=== PATIENT | female | born 1960 | race Caucasian/White ===

== ENCOUNTER 2025-01-05 09:23 | Outpatient (REF) | payer MEDICARE, MEDICAID, SELFPAY ==
--- OUTSIDE RECORDS SUMMARY | 2025-01-05 10:15 | XMS_ITS | Encounter Summary ---
Author Organization [facility] Address [address] [place] [address] Phone Care Team Providers Care Clerical Adjuster Name Role Phone Lou Rene MD Primary Care Provider [phone] [phone] Encounter Details Date Type Department Care Team (Late st Contact Info) Description 02/13/2023 Documentation Only [facility] [address] [place] [address] Saabs Romero MD [address] [place] [address] [place] [address] Social History Tobacco Use Types Packs/Day Years Used Date Smoking Tobacco: Former Smokeless Tobacco: Never Comments:Smoking History Inf o:Unknown Alcohol Use Standard Drinks/Week Comments Yes 0 (1 standard drink = 0.6 oz pure alcohol) Alcoholic Drinks/day: Occasional social drink Comments Unknown Sex and Gender Information Value Date Recorded Sex Assigned at Not on file Legal Sex Female 4:36 PM EST Gender Identity Not on file Sexual Orientation Not on file documented as of this encounter Plan of Treatment Upcoming Encounters Date Type Department Care Team (Late st Contact Info) Description 02/03/2025 1:45 PM EDT Office Visit [facility] [address] [place] [address] Sabas Romero MD [address] [place] [address] [place] [address] documented as of this encounter Visit Diagnoses Not on filedocumented in this encounter Care Teams Clerical Adjuster Relationship Specialty Start Date End Date Lou Rene MD [address] [place] [address] PCP - General 06/23/19 documented as of this encounter
--- OUTSIDE RECORDS SUMMARY | 2025-01-05 10:15 | XMS_ITS | Encounter Summary ---
Author Organization [facility] Address [address] [place] [address] Phone Care Team Providers Care Repairer Maintenance Building Name Role Phone Lou Rene MD Primary Care Provider [phone] [phone] Encounter Details Date Type Department Care Team (Late st Contact Info) Description 07/10/2022 Documentation Only [facility] [address] [place] [address] Sabas Romero MD [address] [place] [address] [place] [address] Social History Tobacco Use Types [...] Visit [facility] [address] [place] [address] Sabas Romero MD [address] [place] [address] [place] [address] documented as of this encounter Visit Diagnoses Not on filedocumented in this encounter Care Teams Repairer Maintenance Building Relationship Specialty Start Date End Date Lou Rene MD [address] [place] [address] PCP - General 06/23/19 documented as of this encounter
--- OUTSIDE RECORDS SUMMARY | 2025-01-05 10:15 | XMS_ITS | Clinical Summary ---
Author Organization [facility] Address [address] [place] [address] Phone Care Team Providers Care Business Continuity Analyst Name Role Phone Lou Rene MD Primary Care Provider Social History Tobacco Use Types Packs/Day Years Used Date Smoking Tobacco: Never Assessed Comments No Sex and Gender Information Value Date Recorded Sex Assigned at Not on file Legal Sex Female 2:01 AM EST Gender Identity Not on file Sexual Orientation Not on file Obstetrics History Last Filed Vital Signs Vital Sign Reading Time Taken Comments Blood Pressure - - Pulse - - Temperature - - Respiratory Rate - - Oxygen Saturation - - Inhaled Oxygen Concentration - - Weight 43.1 kg (95 lb) 07/31/2024 11:17 AM EST Height 152.4 cm (5') 07/31/2024 11:17 AM EST Body Mass Index 18.55 07/31/2024 11:17 AM EST Plan of Treatment Health Maintenance Due Date Last Done Comments Diabetes: Annual GFR (Glomerular Filtration Rate) 1962 Diabetes: Annual Foot Exam 1972 Diabetes: Annual Retina Eye Exam 1972 DTaP,Tdap,and Td Vaccines (1 - Tdap) 1981 Hepatitis A Vaccines (1 of 2 - Risk 2-dose series) 1981 Pneumococcal Vaccine: 50+ Years (1 of 2 - PCV) 1981 Pneumococcal Vaccine: Pediatrics (0 to 5 Years) and At-Risk Patients (6 to 64 Years) (1 of 2 - PCV) 1981 Cervical Cancer Screening: Pap Smear 10/27/1983 Cholesterol Screening (Lipid Panel) 07/22/2022 Colorectal Cancer Screening: Colonoscopy 07/22/2022 Depression Screening 07/22/2022 HIV Screening 07/22/2022 Hepatitis C Screening 07/22/2022 Medicare Annual Wellness Visit 07/22/2022 Social Influencers of Health Screening 07/22/2022 RSV Immunization Adult Patients (1 - Risk 60-74 years 1-dose series) 2022 Diabetes: Annual Urine Albumin-Creatinine Ratio (uACR) 07/31/2024 Diabetes: Blood Sugar Control Test (HGBA1C) 07/31/2024 COVID-19 Vaccine (8 - Pfizer risk season) 2024 04/28/2024, 05/19/2023, 06/04/2022, Additional history exists Breast Cancer Screening 07/31/2026 07/31/20, 07/04/2023, 06/07/2022, Additional history exists Zoster Vaccines Completed 10/12/2021, 05/18/2021 Influenza Vaccine Completed 04/28/2024, , 06/04/2022, Additional history exists HIB Vaccines Aged Out No longer eligi ble based on patient's age to complete this topic HPV Vaccines Aged Out No longer eligi ble based on patient's age to complete this topic Hepatitis B Vaccines Aged Out No long er eligible based on patient's age to complete this topic IPV Vaccines Aged Out No longer eligi ble based on patient's age to complete this topic MMR Vaccines Aged Out No longer eligi ble based on patient's age to complete this topic Meningococcal ACWY Vaccine Aged Out N o longer eligible based on patient's age to complete this topic Meningococcal B Vaccine Aged Out No l onger eligible based on patient's age to complete this topic RSV Immunization Patients Under 20 months Aged Out No longer eligible based on patient's age to complete this topic Varicella Vaccines Aged Out No longer eligible based on patient's age to complete this topic Procedures Procedure Name Priority Date/Time Associated Diagnosis Comments MG MAMMO DIGITAL SCREENING W RONALD BILAT Routine 07/31/2024 11:36 AM EST Encounter for screening mammogram for breast cancer from Last 3 Months or Most Recently Relevant to Health Maintenance Results * MG Mammo Digital Screening w Ronald bilat (07/31/2024 11:36 AM EST) Anatomical Region Laterality Modality Breast Bilateral Mammography 07/31/2024 12:4 2 PM EST Impressions 07/31/2024 12:48 PM EST No mammographic evidence of malignancy. ?? No suspicious interval change. A negative mammogram in the presence of a clinically suspicious palpable abnormality does not preclude the possibility of malignancy or alter the indications for biopsy. ASSESSMENT: ?? BI-RADS 1: NEGATIVE RECOMMENDATION(S): 1: Routine screening mammogram BILATERAL in 1 year. -------- FINAL REPORT -------- Dictated By: Holden Al Dictated Date: 07/31/2024 12:42 ET Assigned Physician: Holden Al Reviewed and Electronically Signed By: Holden Al Signed Date: 07/31/2024 12:48 ET Workstation ID: [id number] Transcribed By: Self Edit Transcribed Date: 07/31/2024 12:42 ET Narrative 07/31/2024 12:48 PM EST EXAM: ??SCREENING MAMMOGRAPHY, BILATERAL HISTORY: ??SCREENING. ??No additional history. COMPARISON: ??07/04/2023, 06/07/2022, 03/30/2021, 09/23/2019 TECHNIQUE: Synthesized CC and MLO projections of each breast. ??Tomosynthesis of each breast in the CC and MLO projections. ADDITIONAL IMAGING: None Computer-aided detection was employed with the iCAD ??profound AI 3-D. TISSUE DENSITY: The breasts are heterogeneously dense, which may obscure small masses. (BI-RADS category C) FINDINGS: RIGHT BREAST: No suspicious mass. No suspicious calcification. No distortion. ?? No additional suspicious right breast findings LEFT BREAST: No suspicious mass. No suspicious calcification. No distortion. ?? No additional suspicious left breast findings Procedure Note Holden Al MD - 07/31/2024 EXAM: SCREENING MAMMOGRAPHY, BILATERAL HISTORY: SCREENING. No additional history. COMPARISON: 07/04/2023, 06/07/2022, 03/30/2021, 09/23/2019 TECHNIQUE: Synthesized CC and MLO projections of each breast.Tomosynthesis of each breast in the CC and MLO projections. ADDITIONAL IMAGING: None Computer-aided detection was employed with the iCAD profound AI 3-D. TISSUE DENSITY: The breasts are heterogeneously dense, which may obscuresmall masses. (BI-RADS category C) FINDINGS: RIGHT BREAST: No suspicious mass. No suspicious calcification. No distortion. Noadditional suspicious right breast findings LEFT BREAST: No suspicious mass. No suspicious calcification. No distortion. Noadditional suspicious left breast findings IMPRESSION: No mammographic evidence of malignancy. No suspicious interval change. A negative mammogram in the presence of a clinically suspicious palpableabnormality does not preclude the possibility of malignancy or alter theindications for biopsy. ASSESSMENT: BI-RADS 1: NEGATIVE RECOMMENDATION(S): 1: Routine screening mammogram BILATERAL in 1 year. -------- FINAL REPORT -------- Dictated By: Holden lA Dictated Date: 07/31/2024 12:42 ET Assigned Physician: Holden Al Reviewed and Electronically Signed By: Holden Al Signed Date: 07/31/2024 12:48 ET Workstation ID: [id number] Transcribed By: Self Edit Transcribed Date: 07/31/2024 12:42 ET us Self Referral Sppl IMG BI PROCEDURES Final Resul t from Last 3 Months or Most Recently Relevant to Health Maintenance Insurance MEDICARE MEDICAID - [place] Care Teams Business Continuity Analyst Relationship Specialty Start Date End Date Lou Rene MD [address] [place] [address] PCP - General Internal Medicine 07/29/24
--- OUTSIDE RECORDS SUMMARY | 2025-01-05 10:15 | XMS_ITS | Encounter Summary ---
Author Organization [facility] Address [address] [place] [address] Phone Care Team Providers Care Multi Slide Machine Tender Name Role Phone Lou Rene MD Primary Care Provider [phone] [phone] Encounter Details Date Type Department Care Team (Late st Contact Info) Description 12/19/2022 Documentation Only [facility] [address] [place] [address] Sabas Romero MD [address] [place] [address] [place] [address] Social History Tobacco Use Types [...] Visit [facility] [address] [place] [address] Sabas Romero MD [address] [place] [address] [place] [address] documented as of this encounter Visit Diagnoses Not on filedocumented in this encounter Care Teams Multi Slide Machine Tender Relationship Specialty Start Date End Date Lou Rene MD [address] [place] [address] PCP - General 06/23/19 documented as of this encounter
--- OUTSIDE RECORDS SUMMARY | 2025-01-05 10:15 | XMS_ITS | Encounter Summary ---
Author Organization [facility] Address [address] [place] [address] Phone Care Team Providers Care Hatch Tender Name Role Phone Lou Rene MD Primary Care Provider [phone] Encounter Details Date Type Department Care Team (Late st Contact Info) Description 03/20/2023 Documentation Only [facility] [address] [place] [address] Sabas Romero MD [address] [place] [address] [place] [address] Social History Tobacco Use Types [...] Visit [facility] [address] [place] [address] Sabas Romero MD [address] [place] [address] [place] [address] documented as of this encounter Visit Diagnoses Not on filedocumented in this encounter Care Teams Hatch Tender Relationship Specialty Start Date End Date Lou Rene MD [address] [place] [address] PCP - General 06/23/19 documented as of this encounter
--- OUTSIDE RECORDS SUMMARY | 2025-01-05 10:15 | XMS_ITS | Encounter Summary ---
Author Organization [facility] Address [address] [place] [address] Phone Care Team Providers Care Food Service Substitute Name Role Phone Lou Rene MD Primary Care Provider [phone] Encounter Details Date Type Department Care Team (Late st Contact Info) Description 03/23/2022 Documentation Only [facility] [address] [place] [address] Sabas Romero MD [address] [place] [address] [place] [address] Social History Tobacco Use Types [...] Visit [facility] [address] [place] [address] Sabas Romero MD [address] [place] [address] [place] [address] documented as of this encounter Visit Diagnoses Not on filedocumented in this encounter Care Teams Food Service Substitute Relationship Specialty Start Date End Date Lou Rene MD [address] [place] [address] PCP - General 06/23/19 documented as of this encounter
--- OUTSIDE RECORDS SUMMARY | 2025-01-05 10:15 | XMS_ITS | Encounter Summary ---
Author Organization [facility] Address [address] [place] [address] Phone Care Team Providers Care Field Cane Scaler Helper Name Role Phone Lou Rene MD Primary Care Provider [phone] Encounter Details Date Type Department Care Team (Late st Contact Info) Description 12/19/2022 Documentation Only [facility] [address] [place] [address] Sabas Romero MD [address] [place] [address] [place] [address] Social History Tobacco Use Types [...] Visit [facility] [address] [place] [address] Sabas Romero MD [address] [place] [address] [place] [address] documented as of this encounter Visit Diagnoses Not on filedocumented in this encounter Care Teams Field Cane Scaler Helper Relationship Specialty Start Date End Date Lou Rene MD [address] [place] [address] PCP - General 06/23/19 documented as of this encounter
--- OUTSIDE RECORDS SUMMARY | 2025-01-05 10:15 | XMS_ITS | Clinical Summary ---
Author Organization [facility] Address [address] [place] [address] Care Team Providers Care Garden Center Manager Name Role Phone Unavailable Primary Care Provider Unavailabl e Social History Tobacco Use Types Packs/Day Years Used Date Smoking Tobacco: Never Assessed Sex and Gender Information Value Date Recorded Sex Assigned at Not on file Gender Identity Not on file Sexual Orientation Not on file Plan of Treatment Not on file
--- OUTSIDE RECORDS SUMMARY | 2025-01-05 10:16 | XMS_ITS | Encounter Summary ---
Author Organization [facility] Address [address] [place] [address] Phone Care Team Providers Care Human Resources Analyst Name Role Phone Lou Rene MD Primary Care Provider [phone] Encounter Details Date Type Department Care Team (Late st Contact Info) Description 01/25/2022 Documentation Only [facility] [address] [place] [address] Sabas Romero MD [address] [place] [address] [place] [address] Social History Tobacco Use Types [...] [facility] [address] [place] [address] Sabas Romero MD [address] [place] [address] [place] [address] documented as of this encounter Visit Diagnoses Not on filedocumented in this encounter Care Teams Human Resources Analyst Relationship Specialty Start Date End Date Lou Rene MD [address] [place] [address] PCP - General 06/23/19 documented as of this encounter
--- OUTSIDE RECORDS SUMMARY | 2025-01-05 10:16 | XMS_ITS | Clinical Summary ---
Author Organization [facility], Address [address] [place] [address] [place] [address] Phone Care Team Providers Care Manufacturing Associate Name Role Phone Lou Rene MD Primary Care Provider [phone] Allergies Active Allergy Reactions Criticality Noted Date Comments Amoxicillin 05/09/2022 Chlordiazepoxide 07/06/2021 Gabapentin Other (see comments) 07/06/2021 Haloperidol 11/20/2022 Other reaction(s): agitation Ketorolac Tromethamine 07/06/2021 Lorazepam 07/06/2021 Meperidine Other (see comments) 07/06/2021 Methadone Other (see comments) 07/06/2021 Nitrofurantoin 11/20/2022 Other reaction(s): body spasms Nsaids 11/20/2022 Other reaction(s): affects kidney Ondansetron 07/06/2021 Prochlorperazine Other (see comments) Sulfa Antibiotics Other (see comments) 02/14/20 Other reaction(s): as child Per patient, she was told by her mother that she was allergic since she was a child Medications fentaNYL (DURAGESIC) 100 MCG/HR Comments: Filled Date: Apr 02 2017 12:00AM Patient Notes: APPLY 3 PATCHES AND CHANGE EVERY 2 DAYS Duration: 30 04/01/2017 Active folic acid (FOLVITE) 1 MG tablet Take 1 tablet by mouth 1 (one) time each day Active HYDROmorphone (DILAUDID) 4 MG tablet Comments: Filled Date: Apr 02 2017 12:00AM Patient Notes: TAKE 1-2 TABLETS BY MOUTH EVERY DAY NEEDED Duration: 30 04/01/2017 Active insulin aspart (NovoLOG FLEXPEN) 100 UNIT/ML injection Comments: Filled Date: Mar 26 2017 12:00AM Patient Notes: INJECT UP TO 13 UNITS SC 3 TIMES DAILY WITH MEALS. FOR T2DM/E11 Duration: 03/26/2017 Active insulin glargine (Lantus SoloStar) 100 UNIT/ML injection Inject 5 Units under the skin every night 03/26/2017 Active morphine (MS CONTIN) 100 MG 12 hr tablet Comments: Filled Date: Apr 02 2017 12:00AM Patient Notes: TAKE ONE TABLET BY MOUTH TWICE A DAY NEEDED FOR PAIN Duration: 04/01/2017 Active promethazine (PHENERGAN) 25 MG tablet Comments: Filled Date: Apr 01 2017 12:00AM Patient Notes: TAKE 1 TABLET BY MOUTH EVERY 6-8 HOURS IF NEEDED FOR NAUSEA Duration: 01/24/2017 Active senna (Senna-Time) 8.6 MG tablet Take 1 tablet by mouth 1 (one) time each day Active baclofen (LIORESAL) 10 MG tablet Take 10 mg by mouth 3 (three) times a day Active atorvastatin (LIPITOR) 10 MG tablet Take 10 mg by mouth 1 (one) time each day Active D3 Super Strength 50 MCG (2000 UT) capsule Take 1 capsule by mouth 1 (one) time each day 03/17/2021 Active clonazePAM (KlonoPIN) 1 MG tablet Take 1 mg by mouth 3 times a day 03/20/2021 Active cyanocobalamin (VITAMIN B-12) 1000 MCG/ML injection INJECT 1 ML ONCE A MONTH 02/15/2021 Active DOK 100 MG capsule Take 100 mg by mouth 2 (two) times a day 03/17/2021 Active omeprazole (PriLOSEC) [address] capsule TAKE ONE CAPSULE BY MOUTH ONCE DAILY 04/17/2021 Active Creon 10257-76331 units capsule 05/12/2021 Activ e cholecalciferol (VITAMIN D-3) 25 MCG (1000 UT) tablet Take 1,000 Units by mouth 1 (one) time each day 06/04/2023 Active metOLazone 5 MG tablet Take 1 tablet (5 mg total) by mouth 2 (two) times a week 20 tablet 3 10/17/2023 Active torsemide (DEMADEX) 20 MG tablet Take 0.5 tablets (10 mg total) by mouth in the morning and 0.5 tablets (10 mg total) in the evening. 90 tablet 3 10/30/2023 Active Farxiga 5 MG tablet Take 5 mg by mouth 1 (one) time each day in the morning 30 tablet 11 07/14/2024 Active Active Problems Problem Noted Date Diagnosed Date Type 2 diabetes mellitus wit h diabetic chronic kidney disease 10/15/2024 Bilateral lower leg edema 02/13/2023 Acute urinary tract infection 02/13/2023 Renal stone 05/11/2021 Vitamin D deficiency 05/11/2021 Acute renal failure due to tubular necrosis 11/18 Anemia 12/16/2019 Chronic kidney disease stage 2 12/16/2019 Immunizations Immunization Administration Dates Next Due Influenza, Unspecified 06/04/2022,2020,06/06/2020,06/23/2019,07/09/20 18 Moderna SARS-COV-2 12/05/2021 Pfizer SARS-COV-2 06/26/2021,12/22/2020,12/02/19 21 SARS-CoV-2, Unspecified 06/04/2022 Shingrix 10/12/2021,05/18/2021 Family History Relation Status Comments Father Mother Social History Tobacco Use Types Packs/Day Years [...] on file Sexual Orientation Not on file Last Filed Vital Signs Vital Sign Reading Time Taken Comments Blood Pressure 100/60 12/22/2018 12:00 PM EDT Pulse - - Temperature - - Respiratory Rate - - Oxygen Saturation - - Inhaled Oxygen Concentration - - Weight 48.5 kg (107 lb) 01/28/2018 12:00 PM EDT Height 152.4 cm (5') 12/22/2018 12:00 PM EDT Body Mass Index 20.9 01/28/2018 12:00 PM EDT Plan of Treatment Upcoming Encounters Date Type Department Care Team (Late st Contact Info) Description 02/03/2025 1:45 PM EDT Office Visit [facility], [address] [place] [address] Sabas Romero MD [address] [facility] [address] [facility] [place] [address] Health Maintenance Due Date Last Done Comments Breast Cancer Screening 1962 Pneumococcal Vaccine: 50+ Years (1 of 2 - PCV) 1981 Colorectal Cancer Screening: Annual FOBT 10/27/2011 Colorectal Cancer Screening: Colonoscopy 10/27/2011 Colorectal Cancer Screening: Sigmoidoscopy 10/27/2011 Diabetes: Hemoglobin A1C 10/15/2024 07/26/2021 Diabetes: Ophthalmology Exam 10/15/2024 Diabetes: Pedal Pulse Checked 10/15/2024 Diabetes: Sensory Foot Exam 10/15/2024 Diabetes: Visual Foot Exam 10/15/2024 Influenza Vaccine (Season Ended) 2025 06/04/2022, 05/18/2021, 06/06/2020, Additional history exists Hepatitis B Vaccine Aged Out No longe r eligible based on patient's age to complete this topic Procedures Procedure Name Priority Date/Time Associated Diagnosis Comments HEMOGLOBIN A1C Routine 07/26/2021 3:56 PM EST Nephrolithiasis from Last 3 Months or Most Recently Relevant to Health Maintenance Results * (ABNORMAL) Hemoglobin A1c (07/26/2021 3:56 PM EST) Hemoglobin A1C 7.2(H) (4.0-5.6) % [facility] Comment: MONITORING: In known diabetic patients, hemoglobin A1c targets should be discussed with health care provider. DIAGNOSTIC USE: ??The [place] Diabetes Association (ADA) and the World Health Organization (WHO) recommend the use of HbA1c to diagnose diabetes using a threshold of 6.5%. Patients who have an HbA1c between 5.7% and 6.4% are considered at increased risk for developing diabetes in the future. CAUTION: Falsely low HbA1c results may be observed in patients with hemolytic anemia, homozygous forms of abnormal hemoglobin (e.g. SS, CC, SC), , recent blood loss or hemoglobin F greater than 7%. Fructosamine may be used as an alternate test in these cases. REFERENCE: ADA: Standards of Medical Care in Diabetes 2020, The Journal of Clinical and Applied Research and Education Volume 43, Supplement 1 Testing performed or reported by [facility], a Service of [facility], [address] [place] [id number] Moshe Dupree MD, Medical Claims Representative [facility]# [id number] Blood (Blood, Venous) 07/26/2021 3:56 PM EST 07/26/2021 4:04 PM EST us Sabas Romero MD LAB BLOOD ORDERABLES Final Res ult [facility] from Last 3 Months or Most Recently Relevant to Health Maintenance Insurance Medicare Medicaid [place] Care Teams Manufacturing Associate Relationship Specialty Start Date End Date Lou Rene MD [address] [place], [place] PCP - General 06/23/19
--- OUTSIDE RECORDS SUMMARY | 2025-01-05 10:16 | XMS_ITS | Encounter Summary ---
Author Organization [facility] Address [address] [place] [address] Phone Care Team Providers Care Casino Cage Supervisor Name Role Phone Lou Rene MD Primary Care Provider [phone] Encounter Details Date Type Department Care Team (Late st Contact Info) Description 01/25/2022 Documentation Only [facility] [address] [place] [address] Sabas Romero MD [address] [place] [address] [place] [address] Social History Tobacco Use Types [...] Visit [facility] [address] [place] [address] Sabas Romero MD [address] [place] [address] [place] [address] documented as of this encounter Visit Diagnoses Not on filedocumented in this encounter Care Teams Casino Cage Supervisor Relationship Specialty Start Date End Date Lou Rene MD [address] [place] [address] PCP - General 06/23/19 documented as of this encounter
--- OUTSIDE RECORDS SUMMARY | 2025-01-05 10:16 | XMS_ITS | Encounter Summary ---
Author Organization [facility] Address [address] [place] [address] Phone Care Team Providers Care Crew Clerk Name Role Phone Lou Rene MD Primary Care Provider [phone] Encounter Details Date Type Department Care Team (Late st Contact Info) Description 01/25/2022 Documentation Only [facility] [address] [place] [address] Sabas Romero MD [address] [place] [address] [place] [address] Social History Tobacco Use Types [...] Visit [facility] [address] [place] [address] Sabas Romero MD [address] [place] [address] [place] [address] documented as of this encounter Visit Diagnoses Not on filedocumented in this encounter Care Teams Crew Clerk Relationship Specialty Start Date End Date Lou Rene MD [address] [place] [address] PCP - General 06/23/19 documented as of this encounter
--- OUTSIDE RECORDS SUMMARY | 2025-01-05 10:16 | XMS_ITS | Encounter Summary ---
Author Organization [facility] [place], Address [address] [place] [address] Phone Care Team Providers Care Carbonizer Name Role Phone Lou Rene MD Primary Care Provider [phone] Encounter Details Date Type Department Care Team (Late st Contact Info) Description 12/20/2020 Orders Only [facility] [address] [place] [phone] Britton Estrada MD Chronic kidney disease stage 2; Acute renal failure due to tubular necrosis (HCC) Social History Tobacco Use Types Packs/Day Years Used Date Smoking Tobacco: Former Comments:Smoking History Inf o:Unknown Alcohol Use Standard [...] Visit [facility] [place], [address] [place] [address] Sabas Romero MD [address] [place] [phone] documented as of this encounter Procedures Procedure Name Priority Date/Time Associated Diagnosis Comments PROTEIN / CREATININE RATIO, URINE Routine 01/02/2021 2:27 PM EDT Chronic kidney disease stage 2 Acute renal failure due to tubular necrosis (HCC) URINALYSIS Routine 01/02/2021 2:27 PM EDT Chronic kidney disease stage 2 Acute renal failure due to tubular necrosis (HCC) CBC Routine 01/02/2021 2:27 PM EDT Chronic kidney disease stage 2 Acute renal failure due to tubular necrosis (HCC) RENAL FUNCTION PANEL Routine 01/02/2021 2:27 PM EDT Chronic kidney disease stage 2 Acute renal failure due to tubular necrosis (HCC) documented in this encounter Results * Urinalysis (01/02/2021 2:27 PM EDT) Appearance YELLOW [facility] Comment:CLEAR Specific [place] 1.019 (1.002-1. 030) [facility] pH Urine 6.5 (5.0-8.0) [facility] Albumin, Urine NEGATIVE (NEG) [facility] Glucose, Ur NEGATIVE (NEG) [facility] Ketones, Urine NEGATIVE (NEG) [facility] Urobilinogen Urine NORMAL (NORM) MG/DL [facility] Bilirubin Urine NEGATIVE (NEG) [facility] Hemoglobin Presence in Urine NEGATIVE (NEG) [facility] Nitrite, Urine NEGATIVE (NEG) [facility] Leukocyte Esterase Urine NEGATIVE (NEG) [facility] Comment: Testing performed or reported by [facility], a Service of [facility], [address] [place] [address] Moshe Dupree MD, [employer] Machining Instructor Urine (Urine, Clean Catch) 01/02/2021 2:27 PM EDT 01/02/2021 2:45 PM EDT us Britton Estrada MD LAB URINE ORDERABLES Final Resul t [facility] * Protein / creatinine ratio, urine (01/02/2021 2:27 PM EDT) Pathologist [facility] Protein/Creatin e Ratio 0.16 (0-0.2) [facility] Protein, Urine 9 MG/DL [facility] Creatinine, Urine 54.9 MG/DL [facility] Comment: Testing performed or reported by [facility], a Service of [facility], [address] [place] [id number] Moshe Dupree MD, [employer] Mach[employer] Instructor Urine (Urine, Clean Catch) 01/02/2021 2:27 PM EDT 01/02/2021 2:45 PM EDT Britton Estrada MD LAB URINE ORDERABLES Final Resul t Performing Organization Address [facility] de Phone Number [facility] * (ABNORMAL) CBC (01/02/2021 2:27 PM EDT) White Blood Cells 7.2 (4.0-11.0) K/MM3 [facility] RBC 4.18(L) (4.20-5.40 ) M/MM3 [facility] Hgb 12.6 (11.7-15.5 ) GM/DL [facility] Hematocrit 39.9 (35.7-45.8 ) % [facility] MCV 95.5 (80.0-100. 0) FL [facility] MCH 30.1 (27.0-34.0 ) PG [facility] MCHC 31.6(L) (33.0-37.0 ) g/dL [facility] Platelets 190 (150-460) K/MM3 [facility] RDW-SD 42.5 (<47.0) FL [facility] MPV 10.3 (9.4-12.4) [place] [facility] nRBC Count 0.0 #/100 WBC'S [facility] NRBC Absolute 0.0 K/MM3 [facility] Comment: Testing performed or reported by [facility], a Service of [facility], [address] [place] [id number] Moshe Dupree MD, [employer] Machining Instructor Blood (Blood, Venous) 01/02/2021 2:27 PM EDT 01/02/2021 2:45 PM EDT Britton Estrada MD LAB BLOOD ORDERABLES Final Resul t Performing Organization Address [facility] Co de Phone Number [facility] * (ABNORMAL) Renal function panel (01/02/2021 2:27 PM EDT) Glucose 123(H) (70-99) MG/DL [facility] BUN 15 (6-20) MG/DL [facility] Creatinine 0.7 (0.5-1.0) MG/DL [facility] Sodium 140 (133-145) MMOL/L [facility] Potassium HEMOLYZED (3.6-5.2) MMOL/L [facility] Comment: Results not reliable with moderate/severe specimen hemolysis. A repeat specimen is requested Chloride 98 (98-107) MMOL/L [facility] Bicarbonate (CO2) 34(H) (22-29) MMOL/L [facility] Anion Gap 8 (4-17) [facility] Albumin 5.0(H) (3.4-4.8) GM/DL [facility] Calcium 10.3 (8.6-10.5 ) MG/DL [facility] Phosphorus, Serum 4.8(H) (2.5-4.5) MG/DL [facility] Est GFR Non 89 ML/MIN/1. 73 M2 [facility] Comment: Creatinine based estimated glomerular filtration rate (eGFR) is calculated using the Chronic Kidney Disease Epidemiology Collaboration (CKD-EPI). The CKD-EPI creatinine equation has not been validated in children (<18 years), women or in some racial or ethnic subgroups other than Caucasians and Americans. EST GFR 103 ML/MIN/1. 73 M2 [facility] Comment: Creatinine based estimated glomerular filtration rate (eGFR) is calculated using the Chronic Kidney Disease Epidemiology Collaboration (CKD-EPI). The CKD-EPI creatinine equation has not been validated in children (<18 years), women or in some racial or ethnic subgroups other than Caucasians and Americans. Testing performed or reported by [facility], a Service of [facility], [address] [place] [id number] Moshe Dupree MD, [employer] Machining Instructor Blood (Blood, Venous) 01/02/2021 2:27 PM EDT 01/02/2021 2:45 PM EDT us Britton Estrada MD LAB BLOOD ORDERABLES Final Resul t [facility] documented in this encounter Visit Diagnoses Diagnosis Chronic kidney disease stage 2 Acute renal failure due to tubular necrosis (HCC) documented in this encounter Care Teams Carbonizer Relationship Specialty Start Date End Date Lou Rene MD [address] [place] [address] PCP - General 06/23/19 documented as of this encounter
[2025-01-05 11:10] LABS: Folate > 20.0 ng/mL (> or = 4.0); Vitamin B12 1114 pg/mL (200-900)
== END 2025-01-05 09:24 | disposition home or self-care (01) ==
LOC: HO.LAB 09:23
PROVIDERS: PCP Internal Medicine; Visit Provider Registered Nurse
DX: G95.9 Disease of spinal cord, unspecified (principal)
CPT/HCPCS: 36415; 82607; 82746